=== PATIENT | male | born 1970 | race Caucasian/White ===

== ENCOUNTER → 2016-09-06 | Outpatient (CLI) | payer OTHER ==
[2016-09-06 11:28] LABS: HEMOGLOBIN 16.1 g/dL (14.0-18.0); MEAN CORPUSCULAR HEMOGLOBIN 31.5 PG (27-31); MEAN CORPUSCULAR HGB CONC 37.4 g/dL (33-37); MEAN PLATELET VOLUME 9.4 FL (7.4-12.2); RDW COEFFICIENT OF VARIATION 13.2 % (11.5-14.5); RED BLOOD COUNT 5.11 10^6/uL (4.70-6.10); WHITE BLOOD COUNT 6.98 10^3/uL (4.8-10.8)
[2016-09-06 11:42] LABS: ASPARTATE AMINO TRANSFERASE 31 IU/L (21-57); BILIRUBIN,TOTAL 0.4 mg/dL (0.3-1.2); BLOOD UREA NITROGEN 31 mg/dL (7-22); BUN/CREATININE RATIO 28.18 (6-20); CALCIUM 9.6 mg/dL (8.7-10.7); CHLORIDE 104 meq/L (98-112); CREATININE 1.1 mg/dL (0.70-1.50); EST GLOMERULAR FILTRATION > 60 (>60 ml/min/1.73m(2)); GLUCOSE 91 mg/dL (78-110); POTASSIUM 4.3 meq/L (3.8-5.2); SODIUM 139 meq/L (135-145); TOTAL PROTEIN 7.4 g/dL (6.1-8.0)
[2016-09-07 13:53] LABS: SYPHILIS IGG WITH REFLEX Negative (Negative)
[2016-09-07 17:41] LABS: HIV ANTIBODY NEGATIVE (N); HIV-1 P24 ANTIGEN NEGATIVE (N)
== END ==
LOC: LAB 10:52
PROVIDERS: ATTEND Internal Medicine
DX: R53.83 Other fatigue (principal); Z72.9 Problem related to lifestyle, unspecified; M54.5 Low back pain
CPT/HCPCS: 36415; 80053; 84403; 84443; 85027; 86703; 86780; 87491; 87591

== ENCOUNTER → 2016-09-28 | Outpatient (CLI) | payer OTHER ==
--- NOTE | 2016-09-28 15:31 | DI ---
MRI LUMBAR SPINE SCAN WITHOUT IV CONTRAST, 09/28/2016 9:50 AM: Clinical History: Left leg weakness. Previous Exam: 07/30/2015. Technique: Sagittal and axial T2 weighted; sagittal T1 weighted and T2 STIR; and axial PD. The vertebral bodies are of normal height and size. There is mild to moderate L5-S1 disc space narrow ing. The L1-2, L4-5 and L5-S1 disc spaces show desiccation change. 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 The cord terminates at T12 and the conus medullaris is normal. Th e disc spaces from T12-L1 through L3-4 are normal. L4-5 has a left lateral disc herniation that has m igrated behind the body of L4 and this would potentially cause impingement on the left L4 nerve root as it enters into the lateral recess of L4 and therefore the nerve root enters into the left L4-5 albino ral foramen. There is no canal or neural foraminal stenosis. L5-S1 has a central focal bulging but no t herniated disc without canal or neural foraminal stenosis. There is a tear of the disc annulus just to the left of midline. Readin. Focal disc herniation on the left side at L4-5 and the fragment has migrated superiorly behind th e body of L4. It is in a position where it can cause impingement on the left L4 nerve root as it ente rs into the lateral recess of L4 and before it enters into the left L4-5 neural foramen. There is no canal or neural foraminal stenosis. 2. There is a focal midline disc bulge at L5-S1 without canal or neural foraminal stenosis. There is a tear of the L5-S1 disc annulus just to the left of midline. 3. The disc spaces from T12-L1 through L3-4 are normal.
== END ==
LOC: MRI 09:43
PROVIDERS: ATTEND Chiropractor
DX: M62.81 Muscle weakness (generalized) (principal); M51.16 Intervertebral disc disorders with radiculopathy, lumbar region; M47.817 Spondylosis without myelopathy or radiculopathy, lumbosacral region
CPT/HCPCS: 72148

== ENCOUNTER → 2016-11-30 | Outpatient (CLI) | payer OTHER | LOC: MOB LAB 12:28 | PROVIDERS: ATTEND Nurse Practitioner Family | DX: M79.632 Pain in left forearm (principal); Z02.89 Encounter for other administrative examinations | CPT/HCPCS: 36415; 84403; 84550; 85652; 86140 ==